=== PATIENT | male | born 1995 | race African-American/Black ===

== ENCOUNTER 2017-06-07 07:11 | Emergency (ER) | payer MEDICAID ==
[~2017-06-07] VITALS: Ht 170.2 cm; Wt 66.0 kg
[2017-06-07] MEDS ORDERED: ALBU18HF2 IH (07:54)
[2017-06-07] MEDS ORDERED: IBUPROFEN 600MG TABLET PO ONE (08:45)
[2017-06-07 09:10] VITALS: BP 104/61
== END 2017-06-07 09:18 | disposition home or self-care (01) ==
LOC: ER 07:11
DX: J02.9 Acute pharyngitis, unspecified (principal); J45.909 Unspecified asthma, uncomplicated; F12.10 Cannabis abuse, uncomplicated; Z87.891 Personal history of nicotine dependence
CPT/HCPCS: 99283